=== PATIENT | male | born 1955 | race African-American/Black ===

== ENCOUNTER 2017-02-09 10:22 | Outpatient (CLI) | payer BC ==
[2014-07-23 09:10] VITALS: BP 179/81
[2017-02-09 11:37] LABS: eGFR (African) > 60; eGFR (Non-African) > 60
== END 2017-02-09 10:23 ==
LOC: LAB 10:22
PROVIDERS: ATTEND Family Medicine
DX: Z00.00 Encounter for general adult medical examination without abnormal findings (principal)
CPT/HCPCS: 36415; 80053; 80061

== ENCOUNTER 2019-01-26 10:15 | Outpatient (CLI) | payer OTHER ==
[2014-07-23 09:10] VITALS: BP 179/81
[2019-01-26 10:59] LABS: A1C 5.5 % (<5.7)
[2019-01-26 11:11] LABS: HDL 70 mg/dL (>40); eGFR (Non-African) > 60
[2019-01-26 11:12] LABS: BASOPHILS % 1 % (0-2); SEGMENTED NEUTROPHILS % 51 % (39-79)
== END 2019-01-26 10:25 ==
LOC: RT 10:15
PROVIDERS: ATTEND Nurse Practitioner Family
DX: I10 Essential (primary) hypertension (principal); R11.0 Nausea
CPT/HCPCS: 36415; 80053; 80061; 82553; 83036; 84484; 85025; 93005